=== PATIENT | male | born 1960 | race Caucasian/White ===

== ENCOUNTER 2018-12-08 08:23 | Day surgery (SDC) | payer MEDICAID ==
[2018-12-08] MEDS ORDERED: Dextrose 5%-Lactated Ringers 1,000 ML IV SCH (09:00)
[2018-12-08] MEDS ORDERED: fentaNYL 100 MCG/2 ML SDV ONE (09:25)
[2018-12-08] MEDS ORDERED: Propofol 200 MG/20 ML SDV ONE (09:26)
[2018-12-08] MEDS ORDERED: Midazolam 1 MG/ML 2 ML SDV ONE (09:26)
--- NOTE | 2018-12-11 12:55 | OR ---
DATE OF PROCEDURE: 12/08/2018 PREOPERATIVE DIAGNOSIS: Indications for screening colonoscopy. POSTOPERATIVE DIAGNOSIS: A single polyp (3 mm) in mid transverse colon. OPERATIVE PROCEDURE: Flexible colonoscopy with polypectomy by snare technique ([id number]). ANESTHESIA: IV sedation. INDICATION FOR PROCEDURE: A 58-year-old presenting with indications for screening colonoscopy, has neither personal or family history of colonic neoplasia. Plan is to proceed with flexible colonoscopy with biopsies and/or polypectomy as indicated. Potential risks including bleeding and perforation were discussed and the patient wishes to proceed. DETAILS OF PROCEDURE: The patient was taken to the operating room and placed in a left lateral decubitus position. IV sedation was administered, after which the initial digital rectal exam was performed and was unremarkable. Colonoscope was then passed into the level of rectum with retroflexion revealing uncomplicated hemorrhoidal columns. The scope was eventually passed to the cecum. The prep was quite good with only a small amount of liquid stool present. To that level, there were no areas of diverticular disease or colitis. In the mid transverse colon, the patient was noted to have a small polyp measuring around 3 mm. Other than that, there were no other signs of neoplasia. This polyp was encircled with the snare and excised and evacuated and sent for histologic evaluation. Good hemostasis at the polypectomy site was confirmed and the scope was then withdrawn. No additional abnormalities were noted. The plan will be to call the patient with the pathology report. Assuming this is an adenomatous polyp of some subtype, a repeat colonoscopy would be warranted in 3 years. Liu Wallis MD /[id number]
== END 2018-12-08 12:15 | disposition home or self-care (01) ==
LOC: JP.SDS 08:23
PROVIDERS: ATTEND Surgery
DX: Z12.11 Encounter for screening for malignant neoplasm of colon (principal); D12.3 Benign neoplasm of transverse colon; K64.9 Unspecified hemorrhoids; I10 Essential (primary) hypertension; E78.5 Hyperlipidemia, unspecified; K21.9 Gastro-esophageal reflux disease without esophagitis
CPT/HCPCS: 45385; 88305; J2250; J2704; J3010; J7042

== ENCOUNTER 2021-04-25 11:48 | Emergency (ER) | payer MEDICAID ==
[2021-04-25] MEDS ORDERED: ceFAZolin 1 GM Vial IM ONE (13:50)
[2021-04-25] MEDS ORDERED: Bacitracin Oint 1 GM U/D Packet TOP ONE ×2 (13:50→16:45)
--- NOTE | 2021-04-25 13:53 | EDM.PDOC ---
ED HPI GENERAL MEDICAL PROBLEM - General Chief Complaint: Upper Extremity Injury/Pain Stated Complaint: SMASHED L INDEX FINGER IN HOT TUB LID Time Seen by Provider: 04/25/21 13:23 Source of Information: Reports: Patient, Family, RN Notes Reviewed History Limitations: Reports: No Limitations - History of Present Illness INITIAL COMMENTS - FREE TEXT/NARRATIVE: 60-year-old gentleman presents emergency department day with amputation of distal tip of his finger he accidentally caught this caught in the hinge of a hot tub cover, no other complaints Left Hand Pain Score (Numeric/FACES): 4 - Related Data Allergies Allergy/AdvReac Type Severity Reaction Status Date / Time No Known Allergies Allergy Verified 04/25/21 13:38 Home Meds: Home Meds Ascorbic Acid [Vitamin C] 500 mg PO DAILY 12/06/18 [History] Aspirin [Ecotrin] 81 mg PO DAILY 12/06/18 [History] Gluc Bruno/Chondro Bruno A/Vit C/Mn [Glucosamine-Chondroitin Cap] 2 each PO DAILY 12/06/18 [History] Lisinopril 10 mg PO DAILY 12/06/18 [History] Vitamin E 400 unit PO DAILY 12/06/18 [History] atorvaSTATin [Lipitor] 10 mg PO DAILY 12/06/18 [History] tadalafiL [Cialis] 5 mg PO DAILY PRN 12/06/18 [History] Past Medical History Cardiovascular History: Reports: High Cholesterol, Hypertension Musculoskeletal History: Reports: None Neurological History: Reports: Seizure Other Neuro History: when child - Infectious Disease History Infectious Disease History: Reports: Chicken Pox - Past Surgical History Cardiovascular Surgical History: Reports: None Neurological Surgical History: Reports: None Musculoskeletal Surgical History: Reports: Shoulder Surgery Social & Family History - Family History Family Medical History: Unobtainable - Tobacco Use Tobacco Use Status *Q: Never Tobacco User Second Hand Smoke Exposure: No - Caffeine Use Caffeine Use: Reports: Soda - Recreational Drug Use Recreational Drug Use: No Review of Systems - Review of Systems Review Of Systems: See Below Musculoskeletal: Reports: Hand Pain Skin: Reports: Wound ED EXAM, GENERAL - Physical Exam Exam: See Below Free Text/Narrative:: Examination of the right hand full range of motion all digits he is missing the distal tip of digit #2 bleeding is controlled he has full range of motion digit however the finger is completely amputated partial nail remains Exam Limited By: No Limitations General Appearance: Alert, WD/WN, No Apparent Distress Course - Vital Signs Last Recorded V/S: Last Vital Signs Temp 97.5 F 04/25/21 13:46 Pulse 69 04/25/21 15:13 Resp 20 04/25/21 15:13 BP 183/109 H 04/25/21 15:13 Pulse Ox 98 04/25/21 15:13 - Orders/Labs/Meds Orders: Active Orders 24 hr Category Date Time Status Vaccine to be Administered/Admin Charge [RC] ASDIRECTED Care 04/25/21 14:28 Active Fingers Second Digit Rt F6 [CR] Stat Exams 04/25/21 13:50 Taken Meds: Medications Discontinued Medications Generic Name Dose Route Start Last Admin Trade Name Freq PRN Reason Stop Dose Admin Bacitracin 1 dose 04/25/21 13:50 04/25/21 14:12 Bacitracin Oint 1 Gm U/D Packet TOP 04/25/21 13:51 1 dose ONETIME ONE Administration Cefazolin Sodium 1 gm 04/25/21 13:50 04/25/21 14:12 Cefazolin 1 Gm Vial IM 04/25/21 13:51 1 gm ONETIME ONE Administration Diphtheria/Tetanus/Acell Pertussis 0.5 ml 04/25/21 14:28 04/25/21 14:58 Diphtheria,Pertussis(Acell),Tetanus Vaccine 0.5 Ml Syringe IM 04/25/21 14:29 0.5 ml .ONCE ONE Administration Lidocaine HCl 5 ml 04/25/21 13:49 04/25/21 14:12 Lidocaine 1% 5 Ml Sdv INJECT 04/25/21 13:50 5 ml ONETIME ONE Administration Departure - Departure Time of Disposition: 16:44 Disposition: Home, Self-Care 01 Condition: Fair Clinical Impression: Amputation of right index finger - Discharge Information Instructions: Traumatic Finger Amputation Referrals: Juan Lechuga MD [Primary Care Provider] - Forms: ED Department Discharge Additional Instructions: Leave the dressing on for 48 hours, after that do daily dressing changes at each time recommend cover the open wound with bacitracin, take full course of antibiotics of cephalexin, use ibuprofen for baseline pain control for breakthrough pain use the hydrocodone. Dr. Maxwell orthopedic hand surgeon would like to see you in clinic in about 1 week's time. Please call for an appointment at [phone] state you need an emergency room follow-up with orthopedics in about 1 week Sepsis Event Note (ED) - Focused Exam Vital Signs: Vital Signs Temp Pulse Resp BP Pulse Ox 04/25/21 15:13 69 20 183/109 H 98 04/25/21 13:46 97.5 F 70 16 177/110 H 99 04/25/21 13:38 97.5 F 70 16 177/110 H 99 - My Orders Last 24 Hours: My Active Orders 04/25/21 13:50 Fingers Second Digit Rt F6 [CR] Stat 04/25/21 14:28 Vaccine to be Administered/Admin Charge [RC] ASDIRECTED - Assessment/Plan Last 24 Hours: My Active Orders 04/25/21 13:50 Fingers Second Digit Rt F6 [CR] Stat 04/25/21 14:28 Vaccine to be Administered/Admin Charge [RC] ASDIRECTED Plan: Assessment Acuity = acute Site and laterality = distal amputation digit #2 right hand loss of tuft Etiology = hot tub lid trauma Manifestations = none Location of injury = Home Lab values = x-ray describes amputation distal tuft digit #2 right hand official read radiologist pending Plan Call discussed case with Dr. Tenorio orthopedic hand surgeon [facility] recommended bacitracin, tetanus update, Ancef, dressing change after 48 hours then daily dressing changes with bacitracin Keflex 5 days follow-up in clinic in 1 week at 1630 prescription written for Keflex 500 mg p.o. 3 times daily and hydrocodone 5/325 1 tab p.o. 3 times daily as needed total #10. This note was dictated using [employer] voice recognition software please call with any questions on syntax or grammar.
[2021-04-25] MEDS ORDERED: Diphtheria,Pertussis(Acell),Tetanus Vaccine 0.5 ML Syringe IM ONE (14:28)
--- NOTE | 2021-04-27 09:47 | CR ---
Fingers Second Digit Lt F1 CLINICAL HISTORY: Amputation FINDINGS: There is amputation of the tip of the second digit. There is distal phalangeal fracture IMPRESSION: Amputation tip of second Fingers Second Digit Lt F1
== END 2021-04-25 17:28 | disposition home or self-care (01) ==
LOC: JP.ED 11:48
DX: S68.621A Partial traumatic transphalangeal amputation of left index finger, initial encounter (principal); E78.00 Pure hypercholesterolemia, unspecified; I10 Essential (primary) hypertension; Z23 Encounter for immunization; Z79.82 Long term (current) use of aspirin; Z79.899 Other long term (current) drug therapy; W23.0XXA Caught, crushed, jammed, or pinched between moving objects, initial encounter
CPT/HCPCS: 73140; 90471; 90715; 96372; 99283; J0690

== ENCOUNTER 2022-06-29 07:47 | Day surgery (SDC) | payer MEDICAID ==
[2022-06-29] MEDS ORDERED: Lactated Ringers 1,000 ML IV SCH (08:00)
[2022-06-29] MEDS ORDERED: Propofol 200 MG/20 ML SDV ONE (08:36)
[2022-06-29] MEDS ORDERED: fentaNYL 50 MCG/ML SDV ONE (08:36)
[2022-06-29] MEDS ORDERED: Midazolam 1 MG/ML 2 ML SDV ONE (08:36)
== END 2022-06-29 11:08 | disposition home or self-care (01) ==
LOC: JP.SDS 07:47
PROVIDERS: ATTEND Family Medicine
DX: Z12.11 Encounter for screening for malignant neoplasm of colon (principal); D12.7 Benign neoplasm of rectosigmoid junction; D12.4 Benign neoplasm of descending colon; D12.5 Benign neoplasm of sigmoid colon; D12.3 Benign neoplasm of transverse colon; I10 Essential (primary) hypertension; E78.5 Hyperlipidemia, unspecified; Z86.010 Personal history of colon polyps; Z79.899 Other long term (current) drug therapy
CPT/HCPCS: 45380; 88305; J2250; J2704; J3010; J7120

== ENCOUNTER 2024-03-17 21:56 | Emergency (ER) | payer MEDICARE, OTHER ==
[2024-03-17 22:46] LABS: BASOPHILS ABSOLUTE AUTO 0.06 K/uL (0.00-0.10); BASOPHILS PERCENT AUTO 0.8 % (0.1-1.3); EOSINOPHILS ABSOLUTE AUTO 0.13 K/uL (0.00-0.40); EOSINOPHILS PERCENT AUTO 1.8 % (0.0-5.4); HEMATOCRIT 40.8 % (38.4-49.7); HEMOGLOBIN 14.6 g/dL (12.9-16.9); IMMATURE GRAN PERCENT AUTO 0.3 % (0.0-0.7); LYMPHOCYTES ABSOLUTE AUTO 1.52 K/uL (0.8-3.3); LYMPHOCYTES PERCENT AUTO 21.4 % (11.4-47.7); MEAN CORPUSCULAR HEMOGLOBIN 31.7 pg (31.6-35.5); MEAN CORPUSCULAR HGB CONC 35.8 g/dL (31.6-35.5); MEAN CORPUSCULAR VOLUME 88.5 fL (81.4-99.0); MONOCYTES ABSOLUTE AUTO 0.53 K/uL (0.20-0.90); MONOCYTES PERCENT AUTO 7.5 % (3.3-12.6); NEUTROPHILS ABSOLUTE AUTO 4.83 K/uL (1.0-7.6); NEUTROPHILS PERCENT AUTO 68.2 % (40.0-78.1); PLATELET COUNT,PLT 164 K/uL (130-375); RED BLOOD CELL COUNT 4.61 M/uL (4.14-5.76); WHITE BLOOD CELL COUNT,WBC 7.1 K/uL (3.2-11.0)
[2024-03-17 22:53] LABS: IMMATURE GRAN ABSOLUTE AUTO 0.02 K/uL (0.00-0.23)
[2024-03-17 23:05] LABS: A/G RATIO 1.1 (1.2-2.2); ALANINE AMINOTRANSFERASE,ALT 36 U/L (12-78); ALBUMIN 3.7 g/dL (3.4-5.0); ALKALINE PHOSPHATASE 46 U/L (46-116); ANION GAP 10.7 mmol/L (5.0-14.0); ASPARTATE AMNIOTRANSFERASE,AST 29 U/L (15-37); BILIRUBIN TOTAL 0.4 mg/dL (0.2-1.0); BLOOD UREA NITROGEN,BUN 15 mg/dL (7-18); CALCIUM 8.4 mg/dL (8.5-10.1); CARBON DIOXIDE,CO2 25 mmol/L (21-32); CHLORIDE,CL 105 mmol/L (100-108); CREATININE 1.2 mg/dL (0.8-1.3); EST CRCL DRUG DOSING (CG) 65.36 mL/min; ESTIMATED GFR 67 mL/min (>60); GLUCOSE RANDOM 111 mg/dL (74-106); POTASSIUM,K 3.9 mmol/L (3.6-5.2); SODIUM,NA 141 mmol/L (140-148); TROPONIN I HIGH SENSITIVITY 8.2 pg/mL (<=60.3)
[2024-03-17] MEDS: Diltiazem 25 MG/5 ML SDV IVPUSH ONE (23:33)
[2024-03-17] MEDS: Sodium Chloride 0.9% 10 ML Syringe FLUSH PRN (23:39)
[2024-03-18] MEDS: Apixaban 5 MG Tab PO ONE (00:50)
== END 2024-03-18 00:59 | disposition home or self-care (01) ==
LOC: JP.ED 21:56
DX: I48.19 Other persistent atrial fibrillation (principal); I10 Essential (primary) hypertension; E78.00 Pure hypercholesterolemia, unspecified; Z79.899 Other long term (current) drug therapy; Z79.82 Long term (current) use of aspirin; Z79.01 Long term (current) use of anticoagulants
CPT/HCPCS: 36415; 80053; 84484; 85025; 85379; 93005; 96374; 99285; A9270; J3490